=== PATIENT | female | born 1950 | race Caucasian/White ===

== ENCOUNTER → 2017-04-06 | Outpatient (CLI) | payer MEDICARE, BC ==
[~2017-04-06] MED LIST: ACETAMINOPHEN PR; ALBUTEROL MININEB NEB; AZOR PO; CENTRUM SILVER PO; DIAZEPAM; DIAZEPAM PO; FLAGYL; FLEXERIL PO; LEVAQUIN PO; LOMOTIL; LOMOTIL TABLET1 TAB PO; MACRODANTIN PO; NAPROSYN500 MG PO; NEXIUM PO; PATIENT'S PHARMACY; PERCOCET5/325 PO; PHYSICIAN; ROBITUSSIN-DM120 ML PO; SYMBICORT INH; TYLENOL #3 PO; VICODIN 5/500 T1 TAB PO; VIT E PO; WELCHOL625 MG PO; ZOCOR PO; ZOLOFT; ZOLOFT PO
--- NOTE | ~2017-04-06 | MY11 ---
[facility] A Service of [facility] RADIOLOGY TEXT RESULTS PATIENT: AMELIA WEI LOCATION: [facility] : 46 UNIT #: [id number] AGE: [address]: Shree Montemayor MD SEX: F ORDER DR: [id number] [facility] [address] [place], [place] [address] [id number] O MR#: [id number] Acc #: [id number] NAME: AMELIA WEI : 1950 SEX: F STUDY DATE/TIME: 04/06/2017 15:31 UNIT: [facility] ROOM: STUDY DESCRIPTION: MY Mammogram Screening Dig Chris Attending Physician: Shree Montemayor Jr., M.D. Ordering Physician: Shree Montemayor Jr., M.D. Primary Care Physician: Shree Montemayor Jr., M.D. MEDICAL IMAGING REPORT This report is preliminary unless electronic signature is present EXAM Bilateral digital screening mammogram with CAD 04/06/2017 INDICATIONS 66-year-old female for routine screening. No reported problems. No personal history of breast cancer. Family history positive in the patient's mother and also in the patient's sister at age 81. History of augmentation mammoplasty bilaterally in 2008. TECHNIQUE CC, MLO and implant displaced views of the breasts were obtained and reviewed with an FDA-approved CAD device COMPARISON 10/28/2008 FINDINGS The patient is status post interval augmentation mammoplasty. Bilateral retropectoral silicone implants are present. They appear symmetric and intact. Breast parenchyma is heterogeneously dense degrading sensitivity of mammography. The pattern is unchanged. There is no new dominant nodule or mass in either breast. No new suspicious cluster of microcalcifications. Benign calcifications are present. IMPRESSION 1. Benign dense mammogram. Interval augmentation mammoplasty. 1-year followup recommended. Patients over the age of 40 are entered into a reminder system with target due date for the next mammogram. A result letter will also be sent to the patient. BIRADS: 2, benign findings. [facility] A Service of [facility] RADIOLOGY TEXT RESULTS PATIENT: AMELIA WEI LOCATION: [facility] : 46 UNIT #: [id number] AGE: [address]: Shree Montemayor MD SEX: F ORDER DR: Dictated by... Vipin Caro M.D. THIS IS AN ELECTRONICALLY VERIFIED REPORT Vipin Caro M.D. at 04/10/2017 11:52 AM RONA/hemal TD: 04/06/2017 22:48 JOB #: [id number] MEDICAL IMAGING REPORT Page 1 of 1 COPY
--- NOTE | ~2017-04-06 | BD1 ---
[facility] A Service of [facility] RADIOLOGY TEXT RESULTS PATIENT: AMELIA WEI LOCATION: [facility] : 46 UNIT #: [id number] AGE: [address]: Shree Montemayor MD SEX: F ORDER DR: [id number] [facility] [address] [place], [place] [address] [id number] O MR#: [id number] Acc #: [id number] NAME: AMELIA WEI : 1950 SEX: F STUDY DATE/TIME: 04/06/2017 16:20 UNIT: [facility] ROOM: STUDY DESCRIPTION: BD Dexa Bone Dens 1+ Site Attending Physician: Shree Montemayor Jr., M.D. Ordering Physician: Shree Montemayor Jr., M.D. Primary Care Physician: Shree Montemayor Jr., M.D. MEDICAL IMAGING REPORT This report is preliminary unless electronic signature is present EXAM DXA scan 04/06/2017 HISTORY Status post menopause with no hormone replacement therapy. Osteopenia. Partial hysterectomy in 1976 with removal of both ovaries. Family history of breast carcinoma in mother and sister. Rheumatoid arthritis. Fractured left hip, right shoulder and bilateral wrists in last 10 years. Smoking history for 18 years. Family history of osteoporosis in mother. FINDINGS Bone mineral density in the left hip was 0.744 g/cm2 which is 1.6 standard deviations below the mean when compared to the young adult reference population which is characteristic of osteopenia. This is 0.2 standard deviations below the mean when compared to the age-matched population. IMPRESSION Bone mineral density in the right hip characteristic of osteopenia. Dictated by... Dequan Page M.D. THIS IS AN ELECTRONICALLY VERIFIED REPORT Dequan Page M.D. at 04/07/2017 2:05 PM ELMA/hemal TD: 04/06/2017 22:09 JOB #: [id number] MEDICAL IMAGING REPORT Page 1 of 1 COPY
== END | disposition home or self-care (01) ==
LOC: CWCC 15:00
DX: Z12.31 Encounter for screening mammogram for malignant neoplasm of breast (principal); M81.0 Age-related osteoporosis without current pathological fracture; Z80.3 Family history of malignant neoplasm of breast; Z98.82 Breast implant status
CPT/HCPCS: 77080; G0202